=== PATIENT | male | born 2000 | race Caucasian/White ===

== ENCOUNTER 2022-12-31 02:27 | Emergency (ER) | payer BC ==
[2022-12-31 03:15] VITALS: TEMP 98.1
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
[2022-12-31 04:57] VITALS: BP 122/73; PULSE 102; RESP 18; O2SAT 98
== END 2022-12-31 04:54 | disposition home or self-care (01) ==
LOC: ED 02:27
DX: Z04.1 Encounter for examination and observation following transport accident (principal); S05.11XA Contusion of eyeball and orbital tissues, right eye, initial encounter; V48.6XXA Car passenger injured in noncollision transport accident in traffic accident, initial encounter
CPT/HCPCS: 70450; 70486; 99285